=== PATIENT | female | born 1995 | race Caucasian/White ===

== ENCOUNTER 2018-01-15 17:51 | Emergency (ER) | payer OTHER ==
--- NOTE | 2018-01-15 18:24 | EDPHY ---
General - History Smoking Status: Never smoked Time Seen by Provider: 01/15/18 18:04 Narrative: The patient was evaluated and managed by the physician's nutritional assistant. My cosignature indicates that I reviewed the chart and I agree with the findings and plan of care as documented. I am the secondary supervising physician. ( Tabatha Mccartney) CHIEF COMPLAINT: Dog bite HISTORY OF PRESENT ILLNESS: Patient presents with complaints of dog bite to the left thigh. This happened within the past 1 hr. 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 She says when the dog she was walking bit her in the left thigh. She was wearing her scrubs. The dog is up- to-date on its immunizations/vaccinations. She reports that her tetanus is up- to-date less than 5 years ago. She has moderate pain at the site of puncture but no bony tenderness. No numbness, tingling or weakness distally. She has no injury elsewhere. No other associated complaints or modifying factors. TIME OF INJURY: 1 hr prior to arrival TETANUS STATUS: Up-to-date MEDICAL/SURGICAL/SOCIAL HISTORY: Denies any ongoing medical diagnoses. LMP started today per no smoking or alcohol use REVIEW OF SYSTEMS: Ten systems reviewed and are negative unless otherwise noted in the HPI EXAMINATION General Appearance: Alert, no distress Head: normocephalic, atraumatic Cardiovascular: Symmetric DP and PT pulses 2+. Neurological: A&O, sensory symmetric, strength symmetric Skin: Warm and dry. There are 2 areas of puncture to the left anterior thigh centrally. These are approximately 1 cm in diameter. No active bleeding. No foreign body. Minimal surrounding ecchymosis. Extremities: Nontender, no pedal edema DIFFERENTIAL DIAGNOSES: Including but not limited to dog bite, puncture, femur fracture, hematoma MDM: 6:10 p.m. Acute dog bite to the left anterior thigh within the past hour. The patient's tetanus is up-to-date. She has moderate pain in the area but no bony tenderness. She is fully ambulatory. I have injected the areas with lidocaine with epinephrine 1%, 7 mL total. Proceed with irrigation. I have also ordered oral pain medication as well as 1st dose of prophylaxis Augmentin. 7:05 p.m. Patient re-evaluated. Wounds have been anesthetized and irrigated. I have re- evaluated these. They. Very clean and without debris or foreign body. There is no surrounding cellulitis but there is right ecchymosis. Recommended management is delayed closure for this patient with Augmentin therapy in the interim for least 72 hr. We discussed this and she agrees to proceed with this. She has instructions to return here and to contact her worker's compensation [facility]. We discussed ED precautions for any worsening pain, fever , purulence or warmth. She is discharged home stable condition. SUPERVISION: This patient was independently evaluated without direct involvement of or examination by the attending physician. ED Precautions: Worsening pain. Erythema, edema, cyanosis, pallor, paresthesia or anesthesia. (Charly Alvarez) - Objective Vital Signs: Initial Vital Signs Temperature (C) 98.2 F 01/15/18 17:54 Heart Rate 135 H 01/15/18 17:54 Respiratory Rate 24 H 01/15/18 17:54 Blood Pressure 147/97 H 01/15/18 17:54 O2 Sat (%) 96 01/15/18 17:54 O2 Delivery Mode Room Air Allergies/Adverse Reactions: No Known Allergies Allergy (Unverified 01/15/18 17:54) Home Medications: Medication Instructions Recorded Amoxicillin/Clavulanate Pot 875 mg PO BID #13 tab 01/15/18 [Augmentin 875 MG TAB (*)] oxyCODONE HCL/ACETAMINOPHEN 1 each PO Q4-6PRN PRN #7 tablet 01/15/18 [Percocet 5-325 mg Tablet] Medications Given: Discontinued Medications Amoxicillin/Clavulanate Potassium (Augmentin 875mg) 875 mg PO EDNOW ONE PRN Reason: Protocol Stop: 01/15/18 18:26 Last Admin: 01/15/18 19:05 Dose: 875 mg Ondansetron HCl (Zofran Odt) 4 mg PO EDNOW ONE Stop: 01/15/18 18:26 Last Admin: 01/15/18 19:05 Dose: 4 mg Oxycodone/Acetaminophen (Percocet 5/325) 1 tab PO EDNOW ONE Stop: 01/15/18 18:26 Last Admin: 01/15/18 19:05 Dose: 1 tab Departure - Departure Disposition: Home, Routine, Self-Care Clinical Impression: Puncture wound Dog bite of left thigh Qualifiers: Encounter type: initial encounter Qualified Code(s): S71.152A - Open bite, left thigh, initial encounter Condition: Good Instructions: Animal Bite (ED), Laceration Without Closure (ED) Additional Instructions: 1. Ice and elevate often 2. Ibuprofen 400-600 mg every 6-8 hours as needed 3. Percocet 1 pill as prescribed as needed for pain every 6-8 hours 4. Augmentin by mouth twice daily for 7 days. First dose was given here. 5. Follow up with worker's compensation Clinic for further care 6. You may return here or your worker's compensation Clinic in 72 hr for possible delayed closure Referrals: JESSIE WRIGHT [Other] - As per Instructions Stand Alone Forms: Work Comp Follow Up Prescriptions: Amoxicillin/Clavulanate Pot [Augmentin 875 MG TAB (*)] 875 mg PO BID #13 tab oxyCODONE HCL/ACETAMINOPHEN [Percocet 5-325 mg Tablet] 1 each PO Q4-6PRN PRN #7 tablet PRN Reason: Pain, Breakthrough
[2018-01-15] MEDS ORDERED: ONDANSETRON DISINTEGRATING 4 MG TAB PO ONE (18:25)
[2018-01-15] MEDS ORDERED: AMOXICILLIN/CLAVULANATE POT 875/125 MG TAB PO ONE (18:25)
[2018-01-15] MEDS ORDERED: OXYCODONE/APAP 5/325 TAB PO ONE (18:25)
[2018-01-15 19:25] VITALS: BP 105/74
== END 2018-01-15 19:25 | disposition home or self-care (01) ==
DX: S71.132A Puncture wound without foreign body, left thigh, initial encounter (principal); W54.0XXA Bitten by dog, initial encounter; Y92.69 Other specified industrial and construction area as the place of occurrence of the external cause; Y99.0 Civilian activity done for income or pay; Y93.89 Activity, other specified

== ENCOUNTER 2018-01-18 15:03 | Emergency (ER) | payer OTHER ==
--- NOTE | 2018-01-18 16:41 | EDPHY ---
General Time Seen by Provider: 01/18/18 16:08 Narrative: CHIEF COMPLAINT: Delayed closure of dog bite HISTORY OF PRESENT ILLNESS: Patient presents with complaints of delayed closure of dog bite to the left thigh. I evaluated this patient with evening. She sustained a dog bite that day. She was irrigated and treated with prophylactic Augmentin. She has been taking this twice daily as prescribed. She has some pain and tingling and twitching of the immediately surrounding area. but no fever, warmth or signs of infection. Pain is tolerable. She has no other complaints otherwise. TIME OF INJURY: 72 hr ago TETANUS STATUS: Up-to-date MEDICAL/SURGICAL/SOCIAL HISTORY: Uncomplicated. REVIEW OF SYSTEMS: Ten systems reviewed and are negative unless otherwise noted in the HPI EXAMINATION General Appearance: Alert, no distress Neurological: A&O, sensory symmetric, strength symmetric. No fasciculations. Symmetric reflexes distally. Skin: Warm and dry, no rash. Two puncture wounds to the left anterior thigh. The superior 1 is 1.25 cm in circular. There is eschar but no purulence. The inferior 1 is 1.25 cm and circular. No signs of cellulitis or abscess. She is neuro intact distally. Extremities: Tenderness in left anterior thigh dog bite. Range of motion is symmetric in lower extremities. MDM: 4:10 p.m. Patient presents for delayed closure of left anteromedial thigh dog bites. I took care this patient initially and asked that she came back for delayed closure. The wounds do appear clean. There is more bruising now but I do not appreciate any signs of cellulitis or abscess. I do feel that she since has had appropriate progression. I have anesthetize the areas. We will irrigate and close them. 4:58 p.m. Dog bites with delayed closure presentation of been closed without difficulty. The wound is clean, dry and intact we discussed wound care. We discussed suture removal here in 7-10 days. We discussed continuation Augmentin and daily dressing changes. She is comfortable with this plan and discharged home in stable condition. PROCEDURE: Laceration repair, 1. Consent: Verbal Location: Left anterior thigh, superior Length of repair: 1.25 cm Complexity: Simple Layer involvement: Single Anesthesia: Local per 1% lidocaine with epinephrine. 3 mL Irrigation: Extensive Debridement: De mihaela of an eschar with copious irrigation but no excisional debridement Procedure description: Following good anesthesia, the wound was copiously irrigated. Wound bed was explored with a sterile glove, and there is no foreign body noted. Wound borders were approximated well with good hemostasis. Tolerated well without complication. Suture/Staple material: 4-0 Prolene, Wound care: Routine as discussed Suture/Staple removal: 7-10 Days PROCEDURE: Laceration repair, 2 Consent: Verbal Location: Left anterior thigh, inferior and medial Length of repair: 1.25 cm Complexity: Simple Layer involvement: Single Anesthesia: Local per 1% lidocaine with epinephrine. 4 mL Irrigation: Extensive Debridement: De mihaela of eschar with copious irrigation but no excisional debridement Procedure description: Following good anesthesia, the wound was copiously irrigated. Wound bed was explored with a sterile glove, and there is no foreign body noted. Wound borders were approximated well with good hemostasis. Tolerated well without complication. Suture/Staple material: 4-0 Prolene Wound care: Routine as discussed Suture/Staple removal: 7-10 Days SUPERVISION: This patient was independently evaluated without direct involvement of or examination by the attending physician. ED Precautions: Worsening pain. Erythema, edema, cyanosis, pallor, paresthesia or anesthesia. - History Smoking Status: Never smoked - Objective Vital Signs: Initial Vital Signs Temperature (C) 97.9 F 01/18/18 15:11 Heart Rate 90 01/18/18 15:11 Respiratory Rate 16 01/18/18 15:11 Blood Pressure 120/81 H 01/18/18 15:11 O2 Sat (%) 96 01/18/18 15:11 O2 Delivery Mode Room Air Allergies/Adverse Reactions: No Known Allergies Allergy (Verified 01/18/18 15:10) Home Medications: Medication Instructions Recorded Amoxicillin/Clavulanate Pot 875 mg PO BID #13 tab 01/15/18 [Augmentin 875 MG TAB (*)] oxyCODONE HCL/ACETAMINOPHEN 1 each PO Q4-6PRN PRN #7 tablet 01/15/18 [Percocet 5-325 mg Tablet] Departure - Departure Disposition: Home, Routine, Self-Care Clinical Impression: Dog bite of left thigh Qualifiers: Encounter type: subsequent encounter Qualified Code(s): S71.152D - Open bite, left thigh, subsequent encounter Condition: Good Instructions: Animal Bite (ED), Laceration (ED) Additional Instructions: 1. Daily wound care as discussed 2. Continue your Augmentin as prescribed to completion 3. Return here in 7-10 days for suture removal, or sooner for signs of infection as discussed Referrals: Physician,Emergency Dept, [Medical Doctor] - As per Instructions (7-10 days for suture removal) Stand Alone Forms: Work Comp Follow Up
[2018-01-18 17:09] VITALS: BP 126/84
== END 2018-01-18 17:09 | disposition home or self-care (01) ==
PROC: 0HQJXZZ Repair Left Upper Leg Skin, External Approach (ICD-10-PCS; principal; 2018-01-18)
DX: S71.152D Open bite, left thigh, subsequent encounter (principal); W54.0XXD Bitten by dog, subsequent encounter